=== PATIENT | male | born 1970 | race Caucasian/White ===

== ENCOUNTER 2020-11-20 07:02 | Emergency (ER) | payer OTHER ==
[2020-11-20 07:20] VITALS: RESP 18; TEMP 98.5
[2020-11-20] MEDS ORDERED: SODIUM CHLORIDE 0.9% 2,000 ML IV STA (07:32)
[2020-11-20] MEDS ORDERED: ONDANSETRON 4 MG/2 ML VIAL IVP STA (07:32)
--- NOTE | 2020-11-20 07:32 | ED ---
General Adult HPI - General Chief complaint: Nausea/Vomiting/Diarrhea Stated complaint: Nausea, Vomiting Time Seen by Provider: 11/20/20 07:16 Source: patient, RN notes reviewed Mode of arrival: ambulatory Limitations: no limitations - History of Present Illness Initial comments: patient is a 50-year-old male presents to the ED for nausea and vomiting. Patient states that symptoms started last Monday and has been unable to keep food or liquids down. Patient states that he has a history of diverticulitis 2 years prior. Patient denies any fever, cough or congestion or changes in bowel movements. Patient states pain is tolerable 4 out of 10 pain at this point with more generalized discomfort. patient denies any sick contacts to his knowledge. - Related Data Previous Rx's Medication Instructions Recorded Amoxicillin/Potassium Clav 1 tab PO Q12HR #20 tab 11/20/20 [Augmentin 875-125 Tablet] Ondansetron Odt [Zofran Odt] 4 mg PO Q8HR PRN #14 tab 11/20/20 Allergies Allergy/AdvReac Type Severity Reaction Status Date / Time ibuprofen [From Motrin] Allergy Swelling Verified 11/20/20 07:20 Review of Systems ROS Statement: Those systems with pertinent positive or pertinent negative responses have been documented in the HPI. ROS Other: All systems not noted in ROS Statement are negative. Past Medical History Past Medical History: No Reported History Past Surgical History: Orthopedic Surgery Additional Past Surgical History / Comment(s): Neck Past Psychological History: No Psychological Hx Reported Smoking Status: Former smoker Past Alcohol Use History: Occasional Past Drug Use History: Marijuana General Exam Limitations: no limitations General appearance: alert, in no apparent distress Respiratory exam: Present: normal lung sounds bilaterally. Absent: respiratory distress, wheezes, rales, rhonchi, stridor Cardiovascular Exam: Present: regular rate, normal rhythm, normal heart sounds. Absent: systolic murmur, diastolic murmur, rubs, gallop, clicks GI/Abdominal exam: Present: soft, tenderness (mild diffuse), normal bowel sounds. Absent: distended, guarding, rebound, rigid Neurological exam: Present: alert, oriented X3 Skin exam: Present: warm, dry, intact, normal color. Absent: rash Course Vital Signs 11/20/20 07:15 Temperature 98.5 F Pulse Rate 93 Respiratory 18 Rate Blood Pressure 137/96 O2 Sat by Pulse 98 Oximetry Medical Decision Making - Medical Decision Making 50-year-old male presented for nausea vomiting mild abdominal discomfort. Patient has colonic wall thickening with diverticulosis. Patient was treated for diverticulitis he does have a surgeon who did his prior colonoscopy 2 years ago advised to follow-up for close treatment. Patient understands and agrees with plan patient was started on oral antibiotics return parameters were discussed. - Lab Data Result diagrams: 11/20/20 07:53 11/20/20 07:53 Lab Results 11/20/20 11/20/20 11/20/20 Range/Units 07:53 07:53 07:53 WBC 14.0 H (3.8-10.6) k/uL RBC 5.78 (4.30-5.90) m/uL Hgb 18.2 H (13.0-17.5) gm/dL Hct 51.1 (39.0-53.0) % MCV 88.4 (80.0-100.0) fL MCH 31.5 (25.0-35.0) pg MCHC 35.7 (31.0-37.0) g/dL RDW 11.7 (11.5-15.5) % Plt Count 390 (150-450) k/uL MPV 7.1 Neutrophils % 79 % Lymphocytes % 11 % Monocytes % 7 % Eosinophils % 1 % Basophils % 0 % Neutrophils # 11.0 H (1.3-7.7) k/uL Lymphocytes # 1.6 (1.0-4.8) k/uL Monocytes # 1.0 (0-1.0) k/uL Eosinophils # 0.1 (0-0.7) k/uL Basophils # 0.0 (0-0.2) k/uL Sodium 134 L (137-145) mmol/L Potassium 4.1 (3.5-5.1) mmol/L Chloride 93 L (98-107) mmol/L Carbon Dioxide 23 (22-30) mmol/L Anion Gap 18 mmol/L BUN 40 H (9-20) mg/dL Creatinine 1.56 H (0.66-1.25) mg/dL Est GFR (CKD-EPI)AfAm 59 (>60 ml/min/1.73 sqM) Est GFR (CKD-EPI)NonAf 51 (>60 ml/min/1.73 sqM) Glucose 127 H (74-99) mg/dL Plasma Lactic Acid Cabrera 1.6 (0.7-2.0) mmol/L Calcium 12.7 H (8.4-10.2) mg/dL Total Bilirubin 1.6 H (0.2-1.3) mg/dL AST 24 (17-59) U/L ALT 18 (4-49) U/L Alkaline Phosphatase 70 (38-126) U/L Total Protein 8.8 H (6.3-8.2) g/dL Albumin 5.2 H (3.5-5.0) g/dL Amylase 55 (30-110) U/L Lipase 41 (23-300) U/L Urine Color Urine Appearance (Clear) Urine pH (5.0-8.0) Ur Specific [place] (1.001-1.035) Urine Protein (Negative) Urine Glucose (UA) (Negative) Urine Ketones (Negative) Urine Blood (Negative) Urine Nitrite (Negative) Urine Bilirubin (Negative) Urine Urobilinogen (<2.0) mg/dL Ur Leukocyte Esterase (Negative) Urine RBC (0-5) /hpf Urine WBC (0-5) /hpf Ur Squamous Epith Cells (0-4) /hpf Amorphous Sediment (None) /hpf Urine Bacteria (None) /hpf Hyaline Casts (0-2) /lpf Urine Mucus (None) /hpf 11/20/20 Range/Units 08:04 WBC (3.8-10.6) k/uL RBC (4.30-5.90) m/uL Hgb (13.0-17.5) gm/dL Hct (39.0-53.0) % MCV (80.0-100.0) fL MCH (25.0-35.0) pg MCHC (31.0-37.0) g/dL RDW (11.5-15.5) % Plt Count (150-450) k/uL MPV Neutrophils % % Lymphocytes % % Monocytes % % Eosinophils % % Basophils % % Neutrophils # (1.3-7.7) k/uL Lymphocytes # (1.0-4.8) k/uL Monocytes # (0-1.0) k/uL Eosinophils # (0-0.7) k/uL Basophils # (0-0.2) k/uL Sodium (137-145) mmol/L Potassium (3.5-5.1) mmol/L Chloride (98-107) mmol/L Carbon Dioxide (22-30) mmol/L Anion Gap mmol/L BUN (9-20) mg/dL Creatinine (0.66-1.25) mg/dL Est GFR (CKD-EPI)AfAm (>60 ml/min/1.73 sqM) Est GFR (CKD-EPI)NonAf (>60 ml/min/1.73 sqM) Glucose (74-99) mg/dL Plasma Lactic Acid [place] (0.7-2.0) mmol/L Calcium (8.4-10.2) mg/dL Total Bilirubin (0.2-1.3) mg/dL AST (17-59) U/L ALT (4-49) U/L Alkaline Phosphatase (38-126) U/L Total Protein (6.3-8.2) g/dL Albumin (3.5-5.0) g/dL Amylase (30-110) U/L Lipase (23-300) U/L Urine Color Yellow Urine Appearance Turbid (Clear) Urine pH 5.0 (5.0-8.0) Ur Specific [place] 1.028 (1.001-1.035) Urine Protein 1+ H (Negative) Urine Glucose (UA) Negative (Negative) Urine Ketones Negative (Negative) Urine Blood Negative (Negative) Urine Nitrite Negative (Negative) Urine Bilirubin Negative (Negative) Urine Urobilinogen <2.0 (<2.0) mg/dL Ur Leukocyte Esterase Negative (Negative) Urine RBC 1 (0-5) /hpf Urine WBC 3 (0-5) /hpf Ur Squamous Epith Cells <1 (0-4) /hpf Amorphous Sediment Moderate H (None) /hpf Urine Bacteria Rare H (None) /hpf Hyaline Casts 44 H (0-2) /lpf Urine Mucus Many H (None) /hpf Disposition Clinical Impression: Diverticulitis, Colitis, Dehydration Disposition: HOME SELF-CARE Condition: Stable Instructions (If sedation given, give patient instructions): Diverticulitis (ED) Additional Instructions: Please return to the Emergency Department if symptoms worsen or any other concerns. Prescriptions: Amoxicillin/Potassium Clav [Augmentin 875-125 Tablet] 1 tab PO Q12HR #20 tab Ondansetron Odt [Zofran Odt] 4 mg PO Q8HR PRN #14 tab PRN Reason: Nausea Is patient prescribed a controlled substance at d/c from ED?: No Referrals: None,Stated [Primary Care Provider] - 1-2 days Time of Disposition: 09:23
[2020-11-20 08:27] LABS: Albumin 5.2 g/dL (3.5-5.0); Calcium 12.7 mg/dL (8.4-10.2); Potassium 4.1 mmol/L (3.5-5.1); Total Bilirubin 1.6 mg/dL (0.2-1.3); Total Protein 8.8 g/dL (6.3-8.2)
[2020-11-20 08:35] LABS: Amorphous Sediment,Urine Moderate /hpf; Appearance,Urine Turbid (Clear); Bacteria,Urine Rare /hpf; Bilirubin,Urine Negative (Negative); Blood,Urine Negative (Negative); Color,Urine Yellow; Glucose,Urine (UA) Negative (Negative); Hyaline Casts,Urine 44 /lpf (0-2); Ketones,Urine Negative (Negative); Leukocyte Esterase,Urine Negative (Negative); Mucus,Urine Many /hpf; Nitrite,Urine Negative (Negative); Protein,Urine 1+ (Negative); RBC,Urine 1 /hpf (0-5); Specific Gravity,Urine 1.028 (1.001-1.035); Squamous Epithelial Cell,Urine <1 /hpf (0-4); Urobilinogen,Urine <2.0 mg/dL (<2.0); WBC,Urine 3 /hpf (0-5)
[2020-11-20 08:40] LABS: Basophils % (A) 0 %; Eosinophils # (A) 0.1 k/uL (0-0.7); Eosinophils % (A) 1 %; HCT 51.1 % (39.0-53.0); HGB 18.2 gm/dL (13.0-17.5); Lymphocytes # (A) 1.6 k/uL (1.0-4.8); Lymphocytes % (A) 11 %; MCH 31.5 pg (25.0-35.0); MCHC 35.7 g/dL (31.0-37.0); MCV 88.4 fL (80.0-100.0); Mean Platelet Volume 7.1; Monocytes % (A) 7 %; Neutrophils % (A) 79 %; Platelet Count 390 k/uL (150-450); RBC 5.78 m/uL (4.30-5.90); RDW 11.7 % (11.5-15.5)
--- NOTE | 2020-11-20 08:44 | CT ---
EXAMINATION TYPE: CT abdomen pelvis w con DATE OF EXAM: 11/20/2020 COMPARISON: None INDICATION: nausea and vomiting, lower abd pain, history of diverticulitis DLP: 977.4 mGycm, Automated exposure control for dose reduction was used. CONTRAST: 100 mL of Isovue 300. Study performed without Oral Contrast TECHNIQUE: Axial images were obtained from above the diaphragm to the pubic rami in the axial plane a t 5 mm thick sections. Reconstructed images are reviewed on the computer in the coronal plane. FINDINGS: Limited CT sections are obtained the lung bases. The lung bases are clear. CT ABDOMEN: Liver: Normal Spleen: Normal Pancreas: Normal Adrenal glands: The adrenal glands are normal. Gallbladder: Normal Kidneys: No masses are evident. No hydronephrosis is present. No cysts are present. Delayed images were obtained through the kidneys, which remain unremarkable. Aorta: Vascular calcification is within the aorta. Inferior vena cava: Normal. CT PELVIS: Diverticular changes are present through the sigmoid colon. The distal sigmoid colon may have some di ffuse thickening. Workup for distal colonic mass is recommended. No inflammatory changes are adjacent to diverticulitis suggest underlying diverticulitis. There are loops of bowel which are incompletely distended or lack oral contrast limiting their evaluation. Appendix: Normal as visualized. Urinary bladder: Normal. Genitourinary structures: Prostate contains calcification Osseous structures: No suspicious lytic or sclerotic lesions. IMPRESSIONS: 1. Diffuse focal thickening within the distal sigmoid colon region. Underlying mass is not excluded. Additional workup such as colonoscopy is recommended. 2. Diverticulosis without evidence of acute diverticulitis.
[2020-11-20 09:52] VITALS: BP 153/94; PULSE 88
== END 2020-11-20 09:54 | disposition home or self-care (01) ==
LOC: EC 07:02
DX: K57.92 Diverticulitis of intestine, part unspecified, without perforation or abscess without bleeding (principal); K52.9 Noninfective gastroenteritis and colitis, unspecified; E86.0 Dehydration; F12.90 Cannabis use, unspecified, uncomplicated; Z87.891 Personal history of nicotine dependence; Z72.89 Other problems related to lifestyle
CPT/HCPCS: 36415; 80053; 82150; 83605; 83690; 85025; 81001; 74177; 99284; 96374; 96361; J2405; Q9967

== ENCOUNTER 2021-02-09 08:43 | Inpatient (IN) | payer OTHER ==
[2021-02-09] MEDS ORDERED: SODIUM CHLORIDE 0.9% 1,000 ML IV STA (09:09)
[2021-02-09] MEDS ORDERED: ONDANSETRON 4 MG/2 ML VIAL IVP STA (09:09)
--- NOTE | 2021-02-09 09:34 | ED ---
General Adult HPI - General Chief complaint: Nausea/Vomiting/Diarrhea Stated complaint: vomiting Time Seen by Provider: 02/09/21 08:57 Source: patient, RN notes reviewed, old records reviewed Mode of arrival: wheelchair Limitations: no limitations - History of Present Illness Initial comments: 51-year-old male presenting for evaluation of 3 days of nausea vomiting. Patient denies significant abdominal pain but states he does have some discomfort which she believes is secondary to vomiting. No fever. No diarrhea. No sick contacts. Patient denies chest pain. Denies cough or URI symptoms. - Related Data Home Medications Medication Instructions Recorded Confirmed No Known Home Medications 02/09/21 02/09/21 Allergies Allergy/AdvReac Type Severity Reaction Status Date / Time ibuprofen [From Motrin] Allergy Eye Verified 02/09/21 09:21 Swelling NSAIDS (Non-Steroidal Allergy Eye Verified 02/09/21 09:21 Anti-Inflamma Swelling Review of Systems ROS Statement: Those systems with pertinent positive or pertinent negative responses have been documented in the HPI. ROS Other: All systems not noted in ROS Statement are negative. Past Medical History Past Medical History: No Reported History Additional Past Medical History / Comment(s): diverticulitis Past Surgical History: Orthopedic Surgery Additional Past Surgical History / Comment(s): Neck Past Psychological History: No Psychological Hx Reported Smoking Status: Former smoker Past Alcohol Use History: Occasional Past Drug Use History: Marijuana General Exam Limitations: no limitations General appearance: alert, in no apparent distress Head exam: Present: atraumatic, normocephalic Eye exam: Present: normal appearance, PERRL ENT exam: Present: normal exam Neck exam: Present: normal inspection. Absent: tenderness, meningismus Respiratory exam: Present: normal lung sounds bilaterally. Absent: respiratory distress, wheezes Cardiovascular Exam: Present: regular rate, normal rhythm GI/Abdominal exam: Present: soft. Absent: distended, tenderness, guarding, rebound Extremities exam: Present: normal inspection, normal capillary refill. Absent: pedal edema Neurological exam: Present: alert, oriented X3, CN II-XII intact. Absent: motor sensory deficit Psychiatric exam: Present: normal affect, normal mood Skin exam: Present: warm, dry, intact. Absent: cyanosis, diaphoretic Course Vital Signs 02/09/21 02/09/21 08:44 10:03 Temperature 97 F L Pulse Rate 97 74 Respiratory 18 20 Rate Blood Pressure 170/77 163/111 O2 Sat by Pulse 96 100 Oximetry - Reevaluation(s) Reevaluation #1: 02/09/21 11:14 CT abdomen pelvis pending EKG Findings - EKG Comments: EKG Findings:: EKG: Normal sinus rhythm, rate of 87, GA interval 144, QRS duration 86, QTC [address] segment elevation. Medical Decision Making - Medical Decision Making 51-year-old male presenting with 3 or 4 days of nausea vomiting. No diarrhea. Patient appears ill and dehydrated. Workup is initiated. He has an elevated white blood cell count at 20, significantly elevated hemoglobin at 20.6. He is in acute renal failure with a creatinine of 7.9, elevated BUN his CO2 is 8. No prior history of kidney issues. Garcia catheter is initiated, urinalysis is pending. Patient will be admitted to [facility] who are aware of the admission and I did discuss case with Dr. Breanna major for nephrology. Patient given 2 L normal saline is started at 1 50 mL per hour of normal saline at this time awaiting nephrology recommendations. - Lab Data Result diagrams: 02/09/21 09:04 02/09/21 09:04 Lab Results 02/09/21 02/09/21 02/09/21 Range/Units 09:04 09:04 09:04 WBC 20.5 H (3.8-10.6) k/uL RBC 6.44 H (4.30-5.90) m/uL Hgb 20.6 H* (13.0-17.5) gm/dL Hct 57.9 H* (39.0-53.0) % MCV 89.9 (80.0-100.0) fL MCH 32.0 (25.0-35.0) pg MCHC 35.6 (31.0-37.0) g/dL RDW 12.8 (11.5-15.5) % Plt Count 357 (150-450) k/uL MPV 8.1 Neutrophils % 88 % Lymphocytes % 5 % Monocytes % 5 % Eosinophils % 1 % Basophils % 0 % Neutrophils # 18.0 H (1.3-7.7) k/uL Lymphocytes # 1.1 (1.0-4.8) k/uL Monocytes # 1.0 (0-1.0) k/uL Eosinophils # 0.1 (0-0.7) k/uL Basophils # 0.0 (0-0.2) k/uL Manual Slide Review Performed Anisocytosis (manual) Present Sodium 128 L (137-145) mmol/L Potassium 5.4 H (3.5-5.1) mmol/L Chloride 84 L (98-107) mmol/L Carbon Dioxide 8 L* (22-30) mmol/L Anion Gap 36 mmol/L BUN 68 H (9-20) mg/dL Creatinine 7.99 H* (0.66-1.25) mg/dL Est GFR (CKD-EPI)AfAm 8 (>60 ml/min/1.73 sqM) Est GFR (CKD-EPI)NonAf 7 (>60 ml/min/1.73 sqM) Glucose 151 H (74-99) mg/dL Plasma Lactic Acid [place]rera 2.1 H* (0.7-2.0) mmol/L Calcium 10.8 H (8.4-10.2) mg/dL Magnesium 2.2 (1.6-2.3) mg/dL Total Bilirubin 2.2 H (0.2-1.3) mg/dL AST 47 (17-59) U/L ALT 25 (4-49) U/L Alkaline Phosphatase 96 (38-126) U/L Total Protein 10.9 H (6.3-8.2) g/dL Albumin 5.9 H (3.5-5.0) g/dL Amylase 72 (30-110) U/L Lipase 63 (23-300) U/L Critical Care Time Critical Care Time: Yes Total Critical Care Time: 35 Disposition Clinical Impression: Dehydration, Acute renal failure (ARF) Disposition: ADMITTED IP TO THIS [facility] Condition: Stable Is patient prescribed a controlled substance at d/c from ED?: No Referrals: None,Stated [Primary Care Provider] - 1-2 days Decision to Admit Reason: Admit from EC Decision Date: 02/09/21 Decision Time: 11:16
[2021-02-09 09:38] LABS: Basophils % (A) 0 %; Eosinophils # (A) 0.1 k/uL (0-0.7); Eosinophils % (A) 1 %; Lymphocytes # (A) 1.1 k/uL (1.0-4.8); Lymphocytes % (A) 5 %; MCHC 35.6 g/dL (31.0-37.0); MCV 89.9 fL (80.0-100.0); Mean Platelet Volume 8.1; Monocytes % (A) 5 %; Neutrophils % (A) 88 %; Platelet Count 357 k/uL (150-450); RBC 6.44 m/uL (4.30-5.90); RDW 12.8 % (11.5-15.5); WBC 20.5 k/uL (3.8-10.6)
[2021-02-09 09:41] LABS: HCT 57.9 % (39.0-53.0); HGB 20.6 gm/dL (13.0-17.5)
[2021-02-09 09:48] LABS: Calcium 10.8 mg/dL (8.4-10.2); Total Bilirubin 2.2 mg/dL (0.2-1.3)
[2021-02-09 09:59] LABS: Potassium 5.4 mmol/L (3.5-5.1)
[2021-02-09 10:00] LABS: Albumin 5.9 g/dL (3.5-5.0); Magnesium 2.2 mg/dL (1.6-2.3); Total Protein 10.9 g/dL (6.3-8.2)
--- NOTE | 2021-02-09 10:03 | XR ---
EXAMINATION TYPE: XR KUB DATE OF EXAM: 02/09/2021 COMPARISON: None INDICATION: Nausea vomiting x4 days TECHNIQUE: Single view abdomen upright view FINDINGS: There is a normal bowel gas pattern. No free air is under the diaphragm. No suspicious air-fluid leve ls or differential air-fluid levels are evident. No mass effect is evident. Psoas margins are normal. No organomegaly is present. No abnormal calcifications identified. Osseous structures appear normal. IMPRESSION: 1. Unremarkable Abdomen
[2021-02-09] MEDS ORDERED: SODIUM CHLORIDE 0.9% 1,000 ML IV ONE (10:08)
[2021-02-09] MEDS ORDERED: SODIUM CHLORIDE 0.9% 1,000 ML IV SCH ×2 (10:45→12:45)
[2021-02-09 10:47] LABS: Anisocytosis (M) Present
[2021-02-09] MEDS ORDERED: ACETAMINOPHEN TAB 325 MG TAB PO PRN (10:57)
[2021-02-09] MEDS ORDERED: NALOXONE 0.4 MG/ML 1 ML VIAL IV PRN ×2 (10:57→12:34)
--- NOTE | 2021-02-09 10:57 | CT ---
EXAMINATION TYPE: CT abdomen pelvis wo con DATE OF EXAM: 02/09/2021 COMPARISON: CT 11/20/2020 HISTORY: generalized abdominal pain, nausea, vomiting CT DLP: 567 mGycm Automated exposure control for dose reduction was used. TECHNIQUE: Helical acquisition of images from the lung bases through the pelvis. FINDINGS: Lack of contrast could compromise sensitivity of the exam. LUNG BASES: No significant abnormality is appreciated. AORTA: No significant abnormality is appreciated. LIVER/GB: No significant abnormality is appreciated. PANCREAS: No significant abnormality is seen. SPLEEN: No significant abnormality is seen. ADRENALS: No significant abnormality is seen. KIDNEYS: No significant abnormality is seen. REPRODUCTIVE ORGANS: Prostate shows associated calcification. URINARY BLADDER: Mildly thickened wall could be due to lack of distention, correlate to exclude cyst itis or possibly chronic bladder outlet obstruction. BOWEL: Diverticular changes are present in the sigmoid colon, there is colonic wall thickening which could be due to muscular hypertrophy, difficult to exclude a mucosal lesion. Small bowel folds show some areas of thickened appearance. High-density stool may be due to radiodense medication or inspissation. The appendix is normal. No ev ident bowel obstruction FREE AIR: No Free Air is visible. ASCITES: None visible. PELVIC ADENOPATHY: None visualized. RETROPERITONEAL ADENOPATHY: No Retroperitoneal Adenopathy visible. OSSEOUS STRUCTURES: There is a spinal curvature, degenerative disc changes are noted. IMPRESSION: DIVERTICULOSIS AND FINDINGS WITHIN THE COLON IS DESCRIBED, CONSIDER BOWEL SURVEILLANCE INDICATED , POSSIBLE ENTERITIS. NONCONTRAST EXAM, ADDITIONAL FINDINGS ABOVE.
--- NOTE | 2021-02-09 11:16 | P.NPCON ---
History of Present Illness - Reason for Consult acute renal failure - History of Present Illness Reason for consultation: Acute kidney injury History of present illness: Patient is a 51-year-old male seen in renal consultation for acute kidney injury. Patient presented to the hospital with nausea and vomiting which began 02/06/2021. Patient states he has not been eating or drinking much at all for the last 3 days. No diarrhea. Denies use of nonsteroidals. No chest pain or shortness of breath. No edema. Patient states his urine output was quite low but has improved since he has been getting IV hydration. No history of diabetes. Denies prior history of kidney disease. Patient's creatinine in November 2020 was 1.56. No other records available. This admission his creatinine is 7.99. He is noted to be acidotic with a bicarbonate level of 8. Sodium was also low. He is also noted to be hypercalcemic with a calcium level of 10.8. It is noted that his calcium in November 2020 was also high at 12.7. Denies IV drug abuse. Admits to occasional marijuana use. No family history of renal disease. Vital signs are stable. General: The patient appeared well nourished and normally developed. HEENT: Head exam is unremarkable. LUNGS: Breath sounds decreased. HEART: Rate and Rhythm are regular. ABDOMEN: Soft, no distention. EXTREMITITES: No edema. Past Medical History Past Medical History: No Reported History Additional Past Medical History / Comment(s): diverticulitis Past Surgical History: Orthopedic Surgery Additional Past Surgical History / Comment(s): Neck Past Psychological History: No Psychological Hx Reported Smoking Status: Former smoker Past Alcohol Use History: Occasional Past Drug Use History: Marijuana Medications and Allergies Home Medications Medication Instructions Recorded Confirmed Type No Known Home Medications 02/09/21 02/09/21 History Allergies Allergy/AdvReac Type Severity Reaction Status Date / Time ibuprofen [From Motrin] Allergy Eye Verified 02/09/21 09:21 Swelling NSAIDS (Non-Steroidal Allergy Eye Verified 02/09/21 09:21 Anti-Inflamma Swelling Physical Exam Vitals: Vital Signs Temp Pulse Resp BP Pulse Ox 02/09/21 10:03 74 20 163/111 100 02/09/21 08:44 97 F L 97 18 170/77 96 Intake and Output 02/08/21 02/09/21 02/09/21 22:59 06:59 14:59 Other: Weight 81.193 kg Results - Lab Results Most recent lab results Calcium 10.8 mg/dL (8.4-10.2) H 02/09/21 09:04 Magnesium 2.2 mg/dL (1.6-2.3) 02/09/21 09:04 02/09/21 09:04 02/09/21 09:04 Assessment and Plan Plan: Assessment: 1. Acute kidney injury secondary to ATN secondary to hypovolemia. Creatinine 7.9 and on admission. No hydronephrosis noted on CT. 2. Hypovolemic hyponatremia. 3. Metabolic acidosis secondary to acute kidney injury. 4. Hypercalcemia secondary to volume contraction. 5. Nausea and vomiting. CT of the abdomen and pelvis suggestive of diverticulosis. Plan: Patient is receiving normal saline boluses at this time. Start isotonic sodium bicarbonate drip to be run at 1 50 mL an hour for maintenance fluids. Garcia catheter will be inserted. Strict I's and O's. Check further workup for hypercalcemia. Avoid nephrotoxins. Continue to monitor renal function and urine output. Continue to assess daily for need for renal replacement therapy. Discussed with the patient. Thank you for the consultation. I will continue to follow the patient with you during his hospital stay.
[2021-02-09] MEDS: DEXTROSE 5% IN WATER 1,000 ML with SODIUM BICARB (1 MEQ/ML) 150 ML IV SCH ×2 (11:51→20:00)
[2021-02-09 12:34] LABS: Appearance,Urine Cloudy (Clear); Bacteria,Urine Many /hpf; Bilirubin,Urine 1+ (Negative); Blood,Urine Moderate (Negative); Color,Urine Yellow; Glucose,Urine (UA) Negative (Negative); Hyaline Casts,Urine 293 /lpf (0-2); Ketones,Urine Negative (Negative); Leukocyte Esterase,Urine Negative (Negative); Mucus,Urine Few /hpf; Nitrite,Urine Negative (Negative); Protein,Urine 2+ (Negative); RBC,Urine 8 /hpf (0-5); Specific Gravity,Urine 1.018 (1.001-1.035); Urobilinogen,Urine <2.0 mg/dL (<2.0); WBC,Urine 16 /hpf (0-5)
--- NOTE | 2021-02-09 12:45 | P.HPIM ---
History of Present Illness H&P Date: 02/09/21 Chief Complaint: Vomiting 51-year-old male here for intractable nausea and vomiting which began 02/06/2021. Patient states he has not been eating or drinking much at all for the last 3 days. No diarrhea or abdominal pain. No chest pain or shortness of breath. No fevers or chills. He has been feeling generally weak and dizzy at times but no other complaints. He states that last November he presented similarly but had abdominal pain at that time and was found to have di verticulitis. No history of diabetes. Denies prior history of kidney disease. In the ER creatinine was 7.99. Patient's creatinine in November 2020 was 1.56. Bicarbonate level of 8. Sodium was also low 128. K 5.4. WBC 20, Hgb 20 Hct 58. He is also noted to be hypercalcemic with a calcium level of 10.8. It is noted that his calcium in November 2020 was also high at 12.7. Denies IV drug abuse. Admits to occasional marijuana and ETOH use. Review of Systems Complete review of system performed, pertinent positives per HPI, otherwise negative Past Medical History Past Medical History: No Reported History Additional Past Medical History / Comment(s): diverticulitis Past Surgical History: Orthopedic Surgery Additional Past Surgical History / Comment(s): Neck Past Psychological History: No Psychological Hx Reported Smoking Status: Former smoker Past Alcohol Use History: Occasional Past Drug Use History: Marijuana Medications and Allergies Home Medications Medication Instructions Recorded Confirmed Type No Known Home Medications 02/09/21 02/09/21 History Allergies Allergy/AdvReac Type Severity Reaction Status Date / Time ibuprofen [From Motrin] Allergy Eye Verified 02/09/21 09:21 Swelling NSAIDS (Non-Steroidal Allergy Eye Verified 02/09/21 09:21 Anti-Inflamma Swelling Physical Exam Vitals: Vital Signs Temp Pulse Resp BP Pulse Ox 02/09/21 11:48 67 18 158/112 98 02/09/21 10:03 74 20 163/111 100 02/09/21 08:44 97 F L 97 18 170/77 96 Intake and Output 02/08/21 02/09/21 02/09/21 22:59 06:59 14:59 Other: Weight 81.193 kg Constitutional: No acute distress, conversant, pleasant Eyes:Anicteric sclerae, moist conjunctiva, no lid-lag, PERRLA, ENMT: Oropharynx clear, no erythema, exudates Neck: Supple, FROM, no masses, or JVD, No carotid bruits, No thyromegaly Lungs: Clear to auscultation, Clear to percussion, Normal respiratory effort, no accessory muscle use Cardiovascular: Heart regular in rate and rhythm, No murmurs, gallops, or rubs, No peripheral edema Abdominal: Soft, Nontender, no guarding, rebound or rigidity, Normoactive bowel sounds, No hepatomegaly, No splenomegaly, No palpable mass Skin: Normal temperature, tone, texture, turgor, no induration, No subcutaneous nodules, No rash, lesions, No ulcers Extremities: No digital cyanosis, No clubbing, Pedal pulses intact and symmetrical, Radial pulses intact and symmetrical, No calf tenderness Psychiatric: Alert and oriented to person, place and time, appropriate affect, intact judgement Neuro: Muscles Strength 5/5 in all 4 extremities, Sensation to light touch grossly present throughout, Cranial nerves II-XII grossly intact, no focal sensory deficits Results CBC & Chem 7: 02/09/21 09:04 02/09/21 09:04 Labs: Abnormal Lab Results - Last 24 Hours (Table) 02/09/21 02/09/21 02/09/21 Range/Units 09:04 09:04 09:04 WBC 20.5 H (3.8-10.6) k/uL RBC 6.44 H (4.30-5.90) m/uL Hgb 20.6 H* (13.0-17.5) gm/dL Hct 57.9 H* (39.0-53.0) % Neutrophils # 18.0 H (1.3-7.7) k/uL Sodium 128 L (137-145) mmol/L Potassium 5.4 H (3.5-5.1) mmol/L Chloride 84 L (98-107) mmol/L Carbon Dioxide 8 L* (22-30) mmol/L BUN 68 H (9-20) mg/dL Creatinine 7.99 H* (0.66-1.25) mg/dL Glucose 151 H (74-99) mg/dL Plasma Lactic Acid Cabrera 2.1 H* (0.7-2.0) mmol/L Calcium 10.8 H (8.4-10.2) mg/dL Total Bilirubin 2.2 H (0.2-1.3) mg/dL Total Protein 10.9 H (6.3-8.2) g/dL Albumin 5.9 H (3.5-5.0) g/dL Assessment and Plan Plan: Acute renal failure Could be secondary to dehydration due to nausea and vomiting versus hypercalcemia-induced Nephrology is consulted, hypercalcemia workup sent IV hydration Follow up creatinine in the morning Metabolic acidosis Likely secondary to above Patient will be started on bicarbonate drip Follow bicarb level in the morning Nausea and vomiting Could be due to renal failure versus gastroenteritis Antiemetics Alcohol and marijuana abuse Counseled to quit Patient will be admitted to inpatient, expected length of stay more than 2 midnights
[2021-02-09] MEDS: ONDANSETRON 4 MG/2 ML VIAL IVP PRN ×2 (13:45→17:10)
[2021-02-09] MEDS ORDERED: MAG HYDROX/AL HYDROX/SIMETH 30 ML CUP PO ONE (14:22)
[2021-02-09 17:26] LABS: Calcium 8.7 mg/dL (8.4-10.2); Potassium 3.7 mmol/L (3.5-5.1)
[2021-02-09 19:18] LABS: Glucose,Whole Blood 115 mg/dL (75-99)
[2021-02-09 22:10] LABS: Protein, Total 1.8 g/dL (6.2-8.2)
[2021-02-10] MEDS: ONDANSETRON 4 MG/2 ML VIAL IVP PRN (02:54)
[2021-02-10] MEDS: DEXTROSE 5% IN WATER 1,000 ML with SODIUM BICARB (1 MEQ/ML) 150 ML IV SCH (03:37)
[2021-02-10 05:56] LABS: Glucose,Whole Blood 135 mg/dL (75-99)
[2021-02-10 07:24] LABS: Basophils % (A) 0 %; Eosinophils # (A) 0.1 k/uL (0-0.7); Eosinophils % (A) 0 %; HCT 44.1 % (39.0-53.0); Lymphocytes # (A) 1.5 k/uL (1.0-4.8); Lymphocytes % (A) 12 %; MCH 30.8 pg (25.0-35.0); MCHC 34.5 g/dL (31.0-37.0); MCV 89.3 fL (80.0-100.0); Monocytes # (A) 1.1 k/uL (0-1.0); Monocytes % (A) 9 %; Neutrophils # (A) 9.6 k/uL (1.3-7.7); Neutrophils % (A) 77 %; Platelet Count 305 k/uL (150-450); RBC 4.94 m/uL (4.30-5.90); RDW 12.5 % (11.5-15.5); WBC 12.4 k/uL (3.8-10.6)
[2021-02-10 07:28] LABS: HGB 15.2 gm/dL (13.0-17.5)
[2021-02-10] MEDS ORDERED: ONDANSETRON 4 MG/2 ML VIAL IVP PRN (08:18)
--- NOTE | 2021-02-10 09:10 | P.PN ---
Subjective Patient is seen in follow-up for acute kidney injury. Creatinine was 7.99 on admission and down to 5.4 for as of yesterday evening. Calcium level also normal. Oral intake remains poor. Nonoliguric. No vomiting. Vital signs are stable. HEENT: Head exam is unremarkable. LUNGS: Breath sounds decreased. HEART: Rate and Rhythm are regular. ABDOMEN: Soft, no distention. EXTREMITITES: No edema. Objective - Vital Signs Vital signs: Vital Signs Temp 97.9 F 02/10/21 04:00 Pulse 69 02/10/21 04:00 Resp 18 02/10/21 04:00 BP 160/81 02/10/21 04:00 Pulse Ox 96 02/10/21 04:00 Intake & Output 02/09/21 02/10/21 02/10/21 18:59 06:59 18:59 Output Total 1200 Balance -1200 Weight 81.193 kg Output: Urine 1200 - Labs CBC & Chem 7: 02/10/21 06:57 02/09/21 16:41 Labs: Abnormal Lab Results - Last 24 Hours (Table) 02/09/21 02/09/21 02/09/21 Range/Units 09:04 09:04 09:04 WBC 20.5 H (3.8-10.6) k/uL RBC 6.44 H (4.30-5.90) m/uL Hgb 20.6 H* (13.0-17.5) gm/dL Hct 57.9 H* (39.0-53.0) % Neutrophils # 18.0 H (1.3-7.7) k/uL Monocytes # (0-1.0) k/uL Sodium 128 L (137-145) mmol/L Potassium 5.4 H (3.5-5.1) mmol/L Chloride 84 L (98-107) mmol/L Carbon Dioxide 8 L* (22-30) mmol/L BUN 68 H (9-20) mg/dL Creatinine 7.99 H* (0.66-1.25) mg/dL Glucose 151 H (74-99) mg/dL POC Glucose (mg/dL) (75-99) mg/dL Plasma Lactic Acid Cabrera 2.1 H* (0.7-2.0) mmol/L Calcium 10.8 H (8.4-10.2) mg/dL Total Bilirubin 2.2 H (0.2-1.3) mg/dL Total Protein 10.9 H (6.3-8.2) g/dL Total Protein (PEP) (6.2-8.2) g/dL Albumin 5.9 H (3.5-5.0) g/dL Urine Protein (Negative) Urine Blood (Negative) Urine Bilirubin (Negative) Urine RBC (0-5) /hpf Urine WBC (0-5) /hpf Urine Bacteria (None) /hpf Hyaline Casts (0-2) /lpf Urine Mucus (None) /hpf 02/09/21 02/09/21 02/09/21 Range/Units 11:33 11:48 16:41 WBC (3.8-10.6) k/uL RBC (4.30-5.90) m/uL Hgb (13.0-17.5) gm/dL Hct (39.0-53.0) % Neutrophils # (1.3-7.7) k/uL Monocytes # (0-1.0) k/uL Sodium 128 L (137-145) mmol/L Potassium (3.5-5.1) mmol/L Chloride 84 L (98-107) mmol/L Carbon Dioxide (22-30) mmol/L BUN 73 H (9-20) mg/dL Creatinine 5.44 H (0.66-1.25) mg/dL Glucose 119 H (74-99) mg/dL POC Glucose (mg/dL) (75-99) mg/dL Plasma Lactic Acid Cabrera (0.7-2.0) mmol/L Calcium (8.4-10.2) mg/dL Total Bilirubin (0.2-1.3) mg/dL Total Protein (6.3-8.2) g/dL Total Protein (PEP) 1.8 L (6.2-8.2) g/dL Albumin (3.5-5.0) g/dL Urine Protein 2+ H (Negative) Urine Blood Moderate H (Negative) Urine Bilirubin 1+ H (Negative) Urine RBC 8 H (0-5) /hpf Urine WBC 16 H (0-5) /hpf Urine Bacteria Many H (None) /hpf Hyaline Casts 293 H (0-2) /lpf Urine Mucus Few H (None) /hpf 02/09/21 02/10/21 02/10/21 Range/Units 19:16 05:53 06:57 WBC 12.4 H (3.8-10.6) k/uL RBC (4.30-5.90) m/uL Hgb (13.0-17.5) gm/dL Hct (39.0-53.0) % Neutrophils # 9.6 H (1.3-7.7) k/uL Monocytes # 1.1 H (0-1.0) k/uL Sodium (137-145) mmol/L Potassium (3.5-5.1) mmol/L Chloride (98-107) mmol/L Carbon Dioxide (22-30) mmol/L BUN (9-20) mg/dL Creatinine (0.66-1.25) mg/dL Glucose (74-99) mg/dL POC Glucose (mg/dL) 115 H 135 H (75-99) mg/dL Plasma Lactic Acid Cabrera (0.7-2.0) mmol/L Calcium (8.4-10.2) mg/dL Total Bilirubin (0.2-1.3) mg/dL Total Protein (6.3-8.2) g/dL Total Protein (PEP) (6.2-8.2) g/dL Albumin (3.5-5.0) g/dL Urine Protein (Negative) Urine Blood (Negative) Urine Bilirubin (Negative) Urine RBC (0-5) /hpf Urine WBC (0-5) /hpf Urine Bacteria (None) /hpf Hyaline Casts (0-2) /lpf Urine Mucus (None) /hpf Microbiology - Last 24 Hours (Table) 02/09/21 11:33 Urine Culture - Preliminary Urine,Voided Assessment and Plan Plan: Assessment: 1. Acute kidney injury secondary to ATN secondary to hypovolemia. Creatinine 7.99 and on admission - 5.44 as of yesterday evening. No hydronephrosis noted on CT. 2. Hypovolemic hyponatremia. 3. Metabolic acidosis secondary to acute kidney injury. Improved with bicarbonate drip. 4. Hypercalcemia secondary to volume contraction. Resolved. Vitamin D 48. 5. Nausea and vomiting. CT of the abdomen and pelvis suggestive of diverticulosis. Plan: Stop bicarb drip. Start normal saline at 75 mL an hour. Morning labs pending. If renal function continues to improve, DC Garcia catheter. Follow-up workup for hypercalcemia. Avoid nephrotoxins. Continue to monitor renal function and urine output.
--- NOTE | 2021-02-10 10:18 | P.PN ---
Subjective Progress Note Date: 02/10/21 Principal diagnosis: Nausea and vomiting Doing well. feeling better and starting to eat. No N/v. No fevers. No pain. Objective - Vital Signs Vital signs: Vital Signs Temp 97.9 F 02/10/21 04:00 Pulse 69 02/10/21 04:00 Resp 18 02/10/21 04:00 BP 160/81 02/10/21 04:00 Pulse Ox 96 02/10/21 04:00 Intake & Output 02/09/21 02/10/21 02/10/21 18:59 06:59 18:59 Output Total 1200 Balance -1200 Weight 81.193 kg Output: Urine 1200 - Exam Constitutional: No acute distress, conversant, pleasant Eyes:Anicteric sclerae, moist conjunctiva, no lid-lag, PERRLA, ENMT: Oropharynx clear, no erythema, exudates Neck: Supple, FROM, no masses, or JVD, No carotid bruits, No thyromegaly Lungs: Clear to auscultation, Clear to percussion, Normal respiratory effort, no accessory muscle use Cardiovascular: Heart regular in rate and rhythm, No murmurs, gallops, or rubs, No peripheral edema Abdominal: Soft, Nontender, no guarding, rebound or rigidity, Normoactive bowel sounds, No hepatomegaly, No splenomegaly, No palpable mass Skin: Normal temperature, tone, texture, turgor, no induration, No subcutaneous nodules, No rash, lesions, No ulcers Extremities: No digital cyanosis, No clubbing, Pedal pulses intact and symmetrical, Radial pulses intact and symmetrical, No calf tenderness Psychiatric: Alert and oriented to person, place and time, appropriate affect, intact judgement Neuro: Muscles Strength 5/5 in all 4 extremities, Sensation to light touch grossly present throughout, Cranial nerves II-XII grossly intact, no focal sen juan deficits - Labs CBC & Chem 7: 02/10/21 06:57 02/09/21 16:41 Labs: Abnormal Lab Results - Last 24 Hours (Table) 02/09/21 02/09/21 02/09/21 Range/Units 09:04 11:33 11:48 WBC (3.8-10.6) k/uL Neutrophils # 18.0 H (1.3-7.7) k/uL Monocytes # (0-1.0) k/uL Sodium (137-145) mmol/L Chloride (98-107) mmol/L BUN (9-20) mg/dL Creatinine (0.66-1.25) mg/dL Glucose (74-99) mg/dL POC Glucose (mg/dL) (75-99) mg/dL Total Protein (PEP) 1.8 L (6.2-8.2) g/dL Urine Protein 2+ H (Negative) Urine Blood Moderate H (Negative) Urine Bilirubin 1+ H (Negative) Urine RBC 8 H (0-5) /hpf Urine WBC 16 H (0-5) /hpf Urine Bacteria Many H (None) /hpf Hyaline Casts 293 H (0-2) /lpf Urine Mucus Few H (None) /hpf 02/09/21 02/09/21 02/10/21 Range/Units 16:41 19:16 05:53 WBC (3.8-10.6) k/uL Neutrophils # (1.3-7.7) k/uL Monocytes # (0-1.0) k/uL Sodium 128 L (137-145) mmol/L Chloride 84 L (98-107) mmol/L BUN 73 H (9-20) mg/dL Creatinine 5.44 H (0.66-1.25) mg/dL Glucose 119 H (74-99) mg/dL POC Glucose (mg/dL) 115 H 135 H (75-99) mg/dL Total Protein (PEP) (6.2-8.2) g/dL Urine Protein (Negative) Urine Blood (Negative) Urine Bilirubin (Negative) Urine RBC (0-5) /hpf Urine WBC (0-5) /hpf Urine Bacteria (None) /hpf Hyaline Casts (0-2) /lpf Urine Mucus (None) /hpf 02/10/21 Range/Units 06:57 WBC 12.4 H (3.8-10.6) k/uL Neutrophils # 9.6 H (1.3-7.7) k/uL Monocytes # 1.1 H (0-1.0) k/uL Sodium (137-145) mmol/L Chloride (98-107) mmol/L BUN (9-20) mg/dL Creatinine (0.66-1.25) mg/dL Glucose (74-99) mg/dL POC Glucose (mg/dL) (75-99) mg/dL Total Protein (PEP) (6.2-8.2) g/dL Urine Protein (Negative) Urine Blood (Negative) Urine Bilirubin (Negative) Urine RBC (0-5) /hpf Urine WBC (0-5) /hpf Urine Bacteria (None) /hpf Hyaline Casts (0-2) /lpf Urine Mucus (None) /hpf Microbiology - Last 24 Hours (Table) 02/09/21 11:33 Urine Culture - Preliminary Urine,Voided Assessment and Plan Plan: Acute renal failure Could be secondary to dehydration due to nausea and vomiting versus hypercalcemia-induced Nephrology is consulted, hypercalcemia workup sent IV hydration Follow up creatinine in the morning--currently pending Metabolic acidosis Likely secondary to above Received bicarbonate drip X24hrs Follow bicarb level Nausea and vomiting Could be due to renal failure versus gastroenteritis Antiemetics Alcohol and marijuana abuse Counseled to quit Anticipated discharge: 1-2 days Dispo: Likely home
[2021-02-10 10:20] LABS: Albumin 4.1 g/dL (3.5-5.0); Calcium 8.6 mg/dL (8.4-10.2); Magnesium 2.5 mg/dL (1.6-2.3); Potassium 3.2 mmol/L (3.5-5.1); Total Bilirubin 2.1 mg/dL (0.2-1.3)
[2021-02-10] MEDS ORDERED: POTASSIUM CHLORIDE ER 20 MEQ TAB.ER PO STA (11:15)
[2021-02-10 11:22] LABS: Angiotensin-1 Converting Enz. 8 U/L (8-52)
[2021-02-10 13:14] VITALS: BMI 26.4
[2021-02-10 15:27] LABS: Albumin 1.04 g/dL (3.80-4.90); Gamma Globulin 0.21 g/dL (0.70-1.50)
[2021-02-10] MEDS: SODIUM CHLORIDE 0.9% 1,000 ML IV SCH (15:55)
[2021-02-10 16:11] LABS: Vitamin D, 1, 25-Dihydroxy 21 pg/mL (20 - 79)
[2021-02-10] MEDS: CALCIUM CARBONATE 500 MG CHEWABLE PO PRN (18:28)
[2021-02-11] MEDS: CALCIUM CARBONATE 500 MG CHEWABLE PO PRN (00:10)
[2021-02-11] MEDS: SODIUM CHLORIDE 0.9% 1,000 ML IV SCH (00:11)
[2021-02-11 02:15] VITALS: RESP 16
[2021-02-11 08:37] LABS: Calcium 8.4 mg/dL (8.4-10.2); Magnesium 2.5 mg/dL (1.6-2.3); Potassium 3.8 mmol/L (3.5-5.1)
--- NOTE | 2021-02-11 09:39 | P.PN ---
Subjective Patient is seen in follow-up for acute kidney injury. Creatinine was 7.99 on admission and down to 1.4 this morning. Calcium level also normal. Oral intake improves. Good urine output. Garcia catheter removed. No vomiting. Vital signs are stable. HEENT: Head exam is unremarkable. LUNGS: Breath sounds decreased. HEART: Rate and Rhythm are regular. ABDOMEN: Soft, no distention. EXTREMITITES: No edema. Objective - Vital Signs Vital signs: Vital Signs Temp 98.1 F 02/11/21 04:00 Pulse 61 02/11/21 04:00 Resp 16 02/11/21 04:00 BP 119/66 02/11/21 04:00 Pulse Ox 98 02/11/21 04:00 Intake & Output 02/10/21 02/11/21 02/11/21 18:59 06:59 18:59 Intake Total 2198 Output Total 2100 1200 Balance 98 -1200 Weight 81.193 kg Intake: Intake, IV Titration 1800 Amount Dextrose 5% in Water 1, 1200 000 ml @ 150 mls/hr IV . [id number] OFELIA with Sodium Bicarb (1 Meq/ml) 150 ml Rx#:[id number] Sodium Chloride 0.9% 1, 600 000 ml @ 75 mls/hr IV . [id number] OFELIA Rx#:[id number] Oral 398 Output: Urine 2100 1200 - Labs CBC & Chem 7: 02/10/21 06:57 02/11/21 07:49 Labs: Abnormal Lab Results - Last 24 Hours (Table) 02/09/21 02/10/21 02/11/21 Range/Units 11:48 06:57 07:49 Sodium 129 L 134 L (137-145) mmol/L Potassium 3.2 L (3.5-5.1) mmol/L Chloride 84 L 94 L (98-107) mmol/L Carbon Dioxide 34 H 33 H (22-30) mmol/L BUN 58 H 33 H (9-20) mg/dL Creatinine 2.76 H 1.40 H (0.66-1.25) mg/dL Glucose 121 H 104 H (74-99) mg/dL Magnesium 2.5 H 2.5 H (1.6-2.3) mg/dL Total Bilirubin 2.1 H (0.2-1.3) mg/dL Albumin (PEP) 1.04 L (3.80-4.90) g/dL [id number] 0.27 L (0.60-1.00) g/dL Beta Globulins 0.18 L (0.60-1.30) g/dL Gamma Globulins 0.21 L (0.70-1.50) g/dL Microbiology - Last 24 Hours (Table) 02/09/21 11:33 Urine Culture - Final Urine,Voided Assessment and Plan Plan: Assessment: 1. Acute kidney injury secondary to ATN secondary to hypovolemia. Creatinine 7.99 and on admission - 1.4 today. No hydronephrosis noted on CT. 2. Hypovolemic hyponatremia. Improved. 3. Metabolic acidosis secondary to acute kidney injury. Improved with bicarbonate drip. 4. Hypercalcemia secondary to volume contraction. Resolved. Vitamin D 48. UGO normal. 1,25D3 21. 5. Nausea and vomiting. CT of the abdomen and pelvis suggestive of diverticulosis. Plan: Maintain normal saline. Follow-up immunofixation studies. Avoid nephrotoxins. Continue to monitor renal function and urine output. Okay for discharge from nephrology standpoint. Follow up outpatient in 1 week.
--- NOTE | 2021-02-11 10:32 | P.DS ---
Providers Date of admission: 02/09/21 10:57 Expected date of discharge: 02/11/21 Attending physician: Felicia Frazier MD Consults: 02/09/21 10:57 Consult Physician Urgent Consulting Provider: Maikol Carlos Consult Reason/Comments: ARF Do you want consulting provider notified?: Already Contacted Primary care physician: Stated None Hospital Course: 51-year-old male here for intractable nausea and vomiting which began 02/06/2021. Patient states he has not been eating or drinking much at all for the last 3 days. No diarrhea or abdominal pain. No chest pain or shortness of breath. No fevers or chills. He has been feeling generally weak and dizzy at times but no other complaints. He states that last November he presented similarly but had abdominal pain at that time and was found to have diverticulitis. No history of diabetes. Denies prior history of kidney disease. In the ER creatinine was 7.99. Patient's creatinine in November 2020 was 1.56. Bicarbonate level of 8. Sodium was also low 128. K 5.4. WBC 20, Hgb 20 Hct 58. He is also noted to be hypercalcemic with a calcium level of 10.8. It is noted that his calcium in November 2020 was also high at 12.7. Denies IV drug abuse. Admits to occasional marijuana and ETOH use. Computed tomography scan of the abdomen done in the emergency department showed possible enteritis and diverticulosis. Patient was admitted, he was started on IV fluids for severe dehydration due to the vomiting. Garcia catheter was inserted upon admission. Urinalysis showed 2+ protein, red blood cells 8, WBC 16, moderate bacteria, hyaline casts and mucus. No treatment was felt to be indicated for UTI because of lack of urinary symptoms. He was seen by nephrology who ordered workup for hypercalcemia. Vitamin D and kai levels came back normal. Serum protein electrophoresis and immunofixation were ordered, currently pending. With IV hydration creatinine improved to 1.4 upon discharge. Garcia catheter was discontinued and he was urinating normally. Patient was cleared today for discharge by nephrology. He was instructed to follow-up with gastroenterology for EGD and colonoscopy as well as nephrology. He was also told to establish care with a primary care physician. Time for discharge 36 min Patient Condition at Discharge: Stable Plan - Discharge Summary Discharge Rx Participant: No New Discharge Prescriptions: No Action No Known Home Medications Discharge Medication List No Known Home Medications 02/09/21 [History] Follow up Appointment(s)/Referral(s): Mary Larkin MD [STAFF PHYSICIAN] - 1 Week None,Stated [Primary Care Provider] - 1-2 days Maikol Carlos DO [STAFF PHYSICIAN] - 1 Week
[2021-02-11 10:54] VITALS: BP 114/71; PULSE 67; TEMP 97.4
== END 2021-02-11 10:40 | disposition home or self-care (01) | DRG 640 ==
LOC: EC 08:43 → 3SCARD 10:57
PROVIDERS: ADMIT Internal Medicine; ATTEND Internal Medicine
DX: E86.0 Dehydration (principal); N17.0 Acute kidney failure with tubular necrosis; R11.10 Vomiting, unspecified; E87.1 Hypo-osmolality and hyponatremia; E87.2 Acidosis; E83.52 Hypercalcemia; E86.1 Hypovolemia; F10.10 Alcohol abuse, uncomplicated; F12.10 Cannabis abuse, uncomplicated; Z87.891 Personal history of nicotine dependence; K57.30 Diverticulosis of large intestine without perforation or abscess without bleeding; Z20.822 Contact with and (suspected) exposure to COVID-19
CPT/HCPCS: 36415; 74018; 74176; 80048; 80053; 81001; 82150; 82164; 82306; 82652; 83605; 83690; 83735; 84165; 85025; 86334; 86335; 87086; 87635; 93005; 96361; 96374; 99291

== ENCOUNTER 2023-02-05 21:50 | Inpatient (IN) | payer OTHER ==
[2023-02-05] MEDS ORDERED: diphenhydrAMINE 50 MG/ML 1 ML VIAL IVP STA (22:11)
[2023-02-05] MEDS ORDERED: METOCLOPRAMIDE 5 MG/ML 2 ML VIAL IVP STA (22:11)
[2023-02-05] MEDS ORDERED: SODIUM CHLORIDE 0.9% 1,000 ML IV STA (22:11)
--- NOTE | 2023-02-05 22:49 | ED ---
Nausea/Vomiting/Diarrhea HPI - General Chief complaint: Nausea/Vomiting/Diarrhea Stated complaint: Vomiting, Dehydration Time Seen by Provider: 02/05/23 21:55 Source: patient Mode of arrival: ambulatory Limitations: no limitations - History of Present Illness Initial comments: 53-year-old male presenting with chief complaint of nausea and vomiting. Symptoms started this morning. He has been unable to keep down any food or fluids. She denies any notable abdominal pain. He admits to dizziness. No fever, chills, diarrhea, hematochezia, melena, dysuria, hematuria, cough, congestion, sore throat, chest pain, difficulty breathing. His gave him a Zofran at home which he threw up shortly thereafter. - Related Data Home Medications Medication Instructions Recorded Confirmed No Known Home Medications 02/09/21 02/09/21 Allergies Allergy/AdvReac Type Severity Reaction Status Date / Time ibuprofen [From Motrin] Allergy Eye Verified 02/09/21 09:21 Swelling NSAIDS (Non-Steroidal Allergy Eye Verified 02/09/21 09:21 Anti-Inflamma Swelling Review of Systems ROS Statement: Those systems with pertinent positive or pertinent negative responses have been documented in the HPI. ROS Other: All systems not noted in ROS Statement are negative. Past Medical History Past Medical History: No Reported History Additional Past Medical History / Comment(s): diverticulitis, benign colon polyp History of Any Multi-Drug Resistant Organisms: None Reported Past Surgical History: Orthopedic Surgery, Tonsillectomy Additional Past Surgical History / Comment(s): Colonoscopy, anterior cervical fusion, ORIF R ankle, R hand tendon repair, colonoscopy Past Anesthesia/Blood Transfusion Reactions: No Reported Reaction Past Psychological History: No Psychological Hx Reported Smoking Status: Former smoker, Vaper Past Alcohol Use History: Rare Past Drug Use History: None Reported - Past Family History Father Family Medical History: No Reported History Additional Family Medical History / Comment(s): Father is healthy Mother Family Medical History: No Reported History Additional Family Medical History / Comment(s): Mother is healthy General Exam Limitations: no limitations General appearance: alert, in distress (Patient appears substantially nauseated and uncomfortable) Head exam: Present: atraumatic, normocephalic Eye exam: Present: normal appearance Neck exam: Present: normal inspection Respiratory exam: Present: normal lung sounds bilaterally. Absent: respiratory distress, wheezes, rales, rhonchi, stridor Cardiovascular Exam: Present: regular rate, normal rhythm, normal heart sounds. Absent: systolic murmur, diastolic murmur, rubs, gallop, clicks GI/Abdominal exam: Present: soft. Absent: distended, tenderness, guarding, rebound, rigid Neurological exam: Present: alert, oriented X3 Psychiatric exam: Present: normal affect, normal mood Course Vital Signs 02/05/23 02/06/23 21:51 00:41 Temperature 98.0 F 96.9 F L Pulse Rate 88 53 L Respiratory 22 18 Rate Blood Pressure 176/94 176/106 O2 Sat by Pulse 97 100 Oximetry Medical Decision Making - Medical Decision Making Was pt. sent in by a medical professional or institution (, PA, MIDLEVEL PROVIDER, urgent care, hospital, or skilled nursing...) When possible be specific @ -No Did you speak to anyone other than the patient for history (EMS, parent, family, police, friend...)? What history was obtained from this source @ -No Did you review nursing and triage notes (agree or disagree)? Why? @ -I reviewed and agree with nursing and triage notes Were old charts reviewed (outside hosp., previous admission, EMS record, old EKG, old radiological studies, urgent care reports/EKG's, skilled nursing records)? Report findings @ -No old charts were reviewed Differential Diagnosis (chest pain, altered mental status, abdominal pain women, abdominal pain men, vaginal bleeding, weakness, fever, dyspnea, syncope, headache, dizziness, GI bleed, back pain, seizure, CVA, palpatations, mental health, musculoskeletal)? @ -Differential includes gastroenteritis, pancreatitis, cholecystitis, appendicitis, hyponatremia, drug induced vomiting, this is not an all inclusive list EKG interpreted by me (3pts min.). @ -EKG shows sinus rhythm ventricular rate 60. MA interval 135. QRS 93. QT 425. QTc 425. X-rays interpreted by me (1pt min.). @ -None done CT interpreted by me (1pt min.). @ -None done U/S interpreted by me (1pt. min.). @ -None done What testing was considered but not performed or refused? (CT, X-rays, U/S, labs)? Why? @ -None What meds were considered but not given or refused? Why? @ -None Did you discuss the management of the patient with other professionals (professionals i.e. DrJacqueline, PA, MIDLEVEL PROVIDER, lab, RT, psych nurse, foster care social worker, chain repairer, teacher, budget officer, continuous pillowcase cutter)? Give summary @ -My attending spoke with the [facility] provider on-call who accepted admission Was smoking cessation discussed for >3mins.? @ -No Was critical care preformed (if so, how long)? @ -No Were there social determinants of health that impacted care today? How? (Homelessness, low income, unemployed, alcoholism, drug addiction, transportation, low edu. Level, literacy, decrease access to med. care, [place] [facility], rehab)? @ -No Was there de-escalation of care discussed even if they declined (Discuss DNR or withdrawal of care, Hospice)? DNR status @ -No What co-morbidities impacted this encounter? (DM, HTN, Smoking, COPD, CAD, Cancer, CVA, ARF, Chemo, Hep., AIDS, mental health diagnosis, sleep apnea, morbid obesity)? @ -None Was patient admitted / discharged? Hospital course, mention meds given and route, prescriptions, significant lab abnormalities, going to OR and other pertinent info. @ -53-year-old male presenting with chief complaint of nausea and vomiting that started today he is unable to hold down any fluids or food. No abdominal pain. No fevers or URI like symptoms. History and physical exam were conducted. Abdomen is soft, nontender, nondistended. Patient appears dehydrated and sickly. WBC 16.3, likely reactive. Patient is hemoconcentrated with hemoglobin 18.1 and RBC 6.04. Creatinine 1.57 and BUN 26. Calcium 13.3. Bilirubin 1.4. Anion gap 26 carbon dioxide 19 chloride 93. He is negative for influenza, RSV, and Covid. Amylase and lipase are WNL. Patient received 2 L fluid bolus and started on maintenance rate of 130 mils per hour. EKG shows sinus rhythm, T waves appear somewhat prolonged. Patient will be admitted due to dehydration, acute kidney injury, and hypercalcemia. Nephrology is consulted. Patient is agreeable to this plan. I discussed this case with my attending Dr. Cobb Undiagnosed new problem with uncertain prognosis? @ -No Drug Therapy requiring intensive monitoring for toxicity (Heparin, Nitro, Insulin, Cardizem)? @ -No Were any procedures done? @ -No Diagnosis/symptom? @ -Dehydration, acute kidney injury, hypercalcemia Acute, or Chronic, or Acute on Chronic? @ -Acute Uncomplicated (without systemic symptoms) or Complicated (systemic symptoms)? @ -Complicated Side effects of treatment? @ -No Exacerbation, Progression, or Severe Exacerbation? @ -No Poses a threat to life or bodily function? How? (Chest pain, [place], [place], pneumonia, PE, COPD, DKA, ARF, appy, cholecystitis, CVA, Diverticulitis, Homicidal, Suicidal, threat to staff... and all critical care pts) @ -yes - Lab Data Result diagrams: 02/05/23 22:29 02/05/23 22:29 Lab Results 02/05/23 02/05/23 02/05/23 Range/Units 22:29 22:29 23:38 WBC 16.3 H (3.8-10.6) k/uL RBC 6.04 H (4.30-5.90) m/uL Hgb 18.1 H (13.0-17.5) gm/dL Hct 52.8 (39.0-53.0) % MCV 87.5 (80.0-100.0) fL MCH 30.0 (25.0-35.0) pg MCHC 34.2 (31.0-37.0) g/dL RDW 12.3 (11.5-15.5) % Plt Count 445 (150-450) k/uL MPV 8.3 Neutrophils % 80 % Lymphocytes % 12 % Monocytes % 5 % Eosinophils % 1 % Basophils % 0 % Neutrophils # 13.1 H (1.3-7.7) k/uL Lymphocytes # 2.0 (1.0-4.8) k/uL Monocytes # 0.8 (0-1.0) k/uL Eosinophils # 0.2 (0-0.7) k/uL Basophils # 0.1 (0-0.2) k/uL Sodium 138 (137-145) mmol/L Potassium 4.1 (3.5-5.1) mmol/L Chloride 93 L (98-107) mmol/L Carbon Dioxide 19 L (22-30) mmol/L Anion Gap 26 mmol/L BUN 26 H (9-20) mg/dL Creatinine 1.57 H (0.66-1.25) mg/dL Est GFR (CKD-EPI)AfAm 57 (>60 ml/min/1.73 sqM) Est GFR (CKD-EPI)NonAf 49 (>60 ml/min/1.73 sqM) Glucose 142 H (74-99) mg/dL Calcium 13.3 H* (8.4-10.2) mg/dL Magnesium (1.6-2.3) mg/dL Total Bilirubin 1.4 H (0.2-1.3) mg/dL AST 32 (17-59) U/L ALT 29 (4-49) U/L Alkaline Phosphatase 93 (38-126) U/L Total Protein 9.8 H (6.3-8.2) g/dL Albumin 5.9 H (3.5-5.0) g/dL Amylase 56 (30-110) U/L Lipase 68 (23-300) U/L Influenza Type A (PCR) Not Detected (Not Detectd) Influenza Type B (PCR) Not Detected (Not Detectd) RSV (PCR) Not Detected (Not Detectd) SARS-CoV-2 (PCR) Not Detected (Not Detectd) 02/05/23 Range/Units 23:53 WBC (3.8-10.6) k/uL RBC (4.30-5.90) m/uL Hgb (13.0-17.5) gm/dL Hct (39.0-53.0) % MCV (80.0-100.0) fL MCH (25.0-35.0) pg MCHC (31.0-37.0) g/dL RDW (11.5-15.5) % Plt Count (150-450) k/uL MPV Neutrophils % % Lymphocytes % % Monocytes % % Eosinophils % % Basophils % % Neutrophils # (1.3-7.7) k/uL Lymphocytes # (1.0-4.8) k/uL Monocytes # (0-1.0) k/uL Eosinophils # (0-0.7) k/uL Basophils # (0-0.2) k/uL Sodium (137-145) mmol/L Potassium (3.5-5.1) mmol/L Chloride (98-107) mmol/L Carbon Dioxide (22-30) mmol/L Anion Gap mmol/L BUN (9-20) mg/dL Creatinine (0.66-1.25) mg/dL Est GFR (CKD-EPI)AfAm (>60 ml/min/1.73 sqM) Est GFR (CKD-EPI)NonAf (>60 ml/min/1.73 sqM) Glucose (74-99) mg/dL Calcium (8.4-10.2) mg/dL Magnesium 1.8 (1.6-2.3) mg/dL Total Bilirubin (0.2-1.3) mg/dL AST (17-59) U/L ALT (4-49) U/L Alkaline Phosphatase (38-126) U/L Total Protein (6.3-8.2) g/dL Albumin (3.5-5.0) g/dL Amylase (30-110) U/L Lipase (23-300) U/L Influenza Type A (PCR) (Not Detectd) Influenza Type B (PCR) (Not Detectd) RSV (PCR) (Not Detectd) SARS-CoV-2 (PCR) (Not Detectd) Disposition Clinical Impression: Dehydration, Hypercalcemia, Acute kidney injury Disposition: ADMITTED IP TO THIS HOSP Condition: Poor Time of Disposition: 00:11
[2023-02-05 22:58] LABS: Basophils # (A) 0.1 k/uL (0-0.2); Basophils % (A) 0 %; Eosinophils # (A) 0.2 k/uL (0-0.7); Eosinophils % (A) 1 %; HCT 52.8 % (39.0-53.0); HGB 18.1 gm/dL (13.0-17.5); Lymphocytes % (A) 12 %; MCHC 34.2 g/dL (31.0-37.0); MCV 87.5 fL (80.0-100.0); Mean Platelet Volume 8.3; Monocytes # (A) 0.8 k/uL (0-1.0); Monocytes % (A) 5 %; Neutrophils # (A) 13.1 k/uL (1.3-7.7); Neutrophils % (A) 80 %; Platelet Count 445 k/uL (150-450); RBC 6.04 m/uL (4.30-5.90); RDW 12.3 % (11.5-15.5); WBC 16.3 k/uL (3.8-10.6)
[2023-02-05 23:13] LABS: ALT 29 U/L (4-49); AST 32 U/L (17-59); African American GFR (CKD) 57 (>60 ml/min/1.73 sqM); Albumin 5.9 g/dL (3.5-5.0); Alkaline Phosphatase 93 U/L (38-126); Amylase 56 U/L (30-110); Anion Gap 26 mmol/L; Blood Urea Nitrogen 26 mg/dL (9-20); Carbon Dioxide 19 mmol/L (22-30); Chloride 93 mmol/L (98-107); Glucose 142 mg/dL (74-99); Lipase 68 U/L (23-300); Non-African American GFR(CKD) 49 (>60 ml/min/1.73 sqM); Potassium 4.1 mmol/L (3.5-5.1); Sodium 138 mmol/L (137-145); Total Bilirubin 1.4 mg/dL (0.2-1.3); Total Protein 9.8 g/dL (6.3-8.2)
[2023-02-05 23:35] LABS: Calcium 13.3 mg/dL (8.4-10.2)
[2023-02-05] MEDS ORDERED: SODIUM CHLORIDE 0.9% 1,000 ML IV ONE (23:40)
[2023-02-06] MEDS ORDERED: NALOXONE 0.4 MG/ML 1 ML VIAL IV PRN (00:07)
[2023-02-06] MEDS ORDERED: METOCLOPRAMIDE 5 MG/ML 2 ML VIAL IVP PRN (00:09)
[2023-02-06] MEDS: SODIUM CHLORIDE 0.9% 1,000 ML IV SCH ×3 (00:59→23:05)
[2023-02-06 01:30] LABS: African American GFR (CKD) 71 (>60 ml/min/1.73 sqM); Anion Gap 20 mmol/L; Blood Urea Nitrogen 26 mg/dL (9-20); Calcium 11.7 mg/dL (8.4-10.2); Carbon Dioxide 18 mmol/L (22-30); Chloride 98 mmol/L (98-107); Glucose 153 mg/dL (74-99); Non-African American GFR(CKD) 61 (>60 ml/min/1.73 sqM); Sodium 136 mmol/L (137-145)
[2023-02-06] MEDS: ONDANSETRON 4 MG/2 ML VIAL IVP PRN ×3 (02:33→20:07)
--- NOTE | 2023-02-06 07:28 | XR ---
EXAMINATION TYPE: XR chest 2V DATE OF EXAM: 02/06/2023 COMPARISON: None INDICATION: Hypercalcemia TECHNIQUE: Frontal and lateral views of the chest are obtained. FINDINGS: The heart size is normal. The pulmonary vasculature is normal. The lungs are clear. Anterior cervical fusion is evident. IMPRESSION: 1. No acute pulmonary process.
[2023-02-06 07:47] LABS: African American GFR (CKD) >90 (>60 ml/min/1.73 sqM); Albumin 4.8 g/dL (3.5-5.0); Anion Gap 19 mmol/L; Blood Urea Nitrogen 26 mg/dL (9-20); Calcium 10.2 mg/dL (8.4-10.2); Carbon Dioxide 22 mmol/L (22-30); Chloride 99 mmol/L (98-107); Glucose 156 mg/dL (74-99); Non-African American GFR(CKD) 81 (>60 ml/min/1.73 sqM); Potassium 4.6 mmol/L (3.5-5.1); Sodium 140 mmol/L (137-145)
[2023-02-06 08:08] LABS: Appearance,Urine Clear (Clear); Bilirubin,Urine Negative (Negative); Blood,Urine Negative (Negative); Color,Urine Yellow; Glucose,Urine (UA) Negative (Negative); Hyaline Casts,Urine 6 /lpf (0-2); Ketones,Urine 3+ (Negative); Leukocyte Esterase,Urine Negative (Negative); Mucus,Urine Occasional /hpf; Nitrite,Urine Negative (Negative); Protein,Urine 1+ (Negative); RBC,Urine 1 /hpf (0-5); Specific Gravity,Urine 1.031 (1.001-1.035); Squamous Epithelial Cell,Urine <1 /hpf (0-4); Urobilinogen,Urine <2.0 mg/dL (<2.0); WBC,Urine <1 /hpf (0-5)
--- NOTE | 2023-02-06 10:05 | P.HPIM ---
History of Present Illness This is a pleasant 53 years old male with no significant past medical history Presents with reluctant nausea vomiting since yesterday morning that he could not keep anything down even when he tried to drink water. There is no blood area No abdominal pain, he feels chills and he feels called. He had bowel movement yesterday which was normal. He denies any other urinary symptoms, no chest pain or dyspnea or coughing. Little dizzy but no headache weakness or numbness. He is on a special diet to lose weight, and this is the third time H time he drinks alcohol his to have vomiting Review of Systems Review of systems CONSTITUTIONAL: No fever, no malaise, no fatigue. HEENT: No recent visual problems or hearing problems. Denied any sore throat. CARDIOVASCULAR: No orthopnea, PND, no palpitations, no syncope. PULMONARY: No shortness of breath, no cough, no hemoptysis. GASTROINTESTINAL: No diarrhea,, no abdominal pain. Normoactive bowel sounds. NEUROLOGICAL: No headaches, no weakness, no numbness. HEMATOLOGICAL: Denies any bleeding or petechiae. GENITOURINARY: Denies any burning micturition, frequency, or urgency. MUSCULOSKELETAL/RHEUMATOLOGICAL: Denies any joint pain, swelling, or any muscle pain. ENDOCRINE: Denies any polyuria or polydipsia. Past Medical History Past Medical History: No Reported History Additional Past Medical History / Comment(s): diverticulitis, benign colon polyp History of Any Multi-Drug Resistant Organisms: None Reported Past Surgical History: Orthopedic Surgery, Tonsillectomy Additional Past Surgical History / Comment(s): Colonoscopy, anterior cervical fusion, ORIF R ankle, R hand tendon repair, colonoscopy Past Anesthesia/Blood Transfusion Reactions: No Reported Reaction Past Psychological History: No Psychological Hx Reported Additional Psychological History / Comment(s): Pt resides with his spouse and their 2 sons, one of which is an adult. Pt is independent. Smoking Status: Former smoker, Vaper Past Alcohol Use History: Rare Additional Past Alcohol Use History / Comment(s): Pt started smoking as a teen and quit in 2019. He then started vaping. Past Drug Use History: None Reported Additional Drug Use History / Comment(s): Occasional marijuana use. - Past Family History Father Family Medical History: No Reported History Additional Family Medical History / Comment(s): Father is healthy Mother Family Medical History: No Reported History Additional Family Medical History / Comment(s): Mother is healthy Medications and Allergies Home Medications Medication Instructions Recorded Confirmed Type No Known Home Medications 02/09/21 02/09/21 History Allergies Allergy/AdvReac Type Severity Reaction Status Date / Time ibuprofen [From Motrin] Allergy Eye Verified 02/09/21 09:21 Swelling NSAIDS (Non-Steroidal Allergy Eye Verified 02/09/21 09:21 Anti-Inflamma Swelling Physical Exam Vitals: Vital Signs Temp Pulse Pulse Resp BP BP Pulse Ox 02/06/23 06:56 98.5 F 62 18 154/84 96 02/06/23 01:35 97.7 F 56 L 16 155/77 97 02/06/23 00:56 48 L 18 169/85 99 02/06/23 00:41 96.9 F L 53 L 18 176/106 100 02/05/23 21:51 98.0 F 88 22 176/94 97 Intake and Output 02/05/23 02/06/23 02/06/23 22:59 06:59 14:59 Output Total 600 Balance -600 Output: Urine 600 Other: # Voids 1 Weight 81.647 kg 81.647 kg GENERAL: The patient is alert and oriented x3, not in any acute distress. Well developed, well nourished. HEENT: Pupils are round and equally reacting to light. EOMI. No scleral icterus. No conjunctival pallor. Normocephalic, atraumatic. No pharyngeal erythema. No thyromegaly. CARDIOVASCULAR: S1 and S2 present. No murmurs, rubs, or gallops. PULMONARY: Chest is clear to auscultation, no wheezing , no crackles. ABDOMEN: Soft, nontender, nondistended, normoactive bowel sounds. No palpable organomegaly. MUSCULOSKELETAL: No joint swelling or deformity. EXTREMITIES: No cyanosis, clubbing, or pedal edema. NEUROLOGICAL: Gross neurological examination did not reveal any focal deficits. SKIN: No rashes. no petechiae. Results CBC & Chem 7: 02/05/23 22:29 02/06/23 06:45 Labs: Abnormal Lab Results - Last 24 Hours (Table) 02/05/23 02/05/23 02/06/23 Range/Units 22:29 22: 00:06 WBC 16.3 H (3.8-10.6) k/uL RBC 6.04 H (4.30-5.90) m/uL Hgb 18.1 H (13.0-17.5) gm/dL Neutrophils # 13.1 H (1.3-7.7) k/uL Sodium 136 L (137-145) mmol/L Chloride 93 L (98-107) mmol/L Carbon Dioxide 19 L 18 L (22-30) mmol/L BUN 26 H 26 H (9-20) mg/dL Creatinine 1.57 H 1.32 H (0.66-1.25) mg/dL Glucose 142 H 153 H (74-99) mg/dL Calcium 13.3 H* 11.7 H (8.4-10.2) mg/dL Total Bilirubin 1.4 H (0.2-1.3) mg/dL Total Protein 9.8 H (6.3-8.2) g/dL Albumin 5.9 H (3.5-5.0) g/dL Urine Protein (Negative) Urine Ketones (Negative) Hyaline Casts (0-2) /lpf Urine Mucus (None) /hpf 02/06/23 02/06/23 Range/Units 06:45 06:58 WBC (3.8-10.6) k/uL RBC (4.30-5.90) m/uL Hgb (13.0-17.5) gm/dL Neutrophils # (1.3-7.7) k/uL Sodium (137-145) mmol/L Chloride (98-107) mmol/L Carbon Dioxide (22-30) mmol/L BUN 26 H (9-20) mg/dL Creatinine (0.66-1.25) mg/dL Glucose 156 H (74-99) mg/dL Calcium (8.4-10.2) mg/dL Total Bilirubin (0.2-1.3) mg/dL Total Protein (6.3-8.2) g/dL Albumin (3.5-5.0) g/dL Urine Protein 1+ H (Negative) Urine Ketones 3+ H (Negative) Hyaline Casts 6 H (0-2) /lpf Urine Mucus Occasional H (None) /hpf Assessment and Plan Assessment: Recurrent nausea vomiting, most likely secondary to gastritis. Secondary to alcohol effect and binge drinking Dehydration secondary to above Acute kidney injury secondary to above Hypercalcemia Nicotine dependence he was consulted to quit Plan: Continue with bowel rest, place patient on clear liquid diet upon his request No abdominal pain and we'll keep monitoring IV fluids Continue with Reglan when necessary Abstinence from alcohol Monitor calcium Nephrology consult he chest x-ray and parathyroid hormone and TSH Labs and medication were reviewed.. Continue same treatment. Continue with symptomatic treatment. Resume home medication. Monitor labs and vitals. DVT and GI prophylaxis. Further recommendations as per clinical course of the patient DVT prophylaxis: Subcutaneous heparin GI Prophylaxis: Ppi
--- NOTE | 2023-02-06 11:23 | P.NPCON ---
History of Present Illness - Reason for Consult acute renal failure - History of Present Illness Reason for consultation: Acute kidney injury and hypercalcemia History of present illness: Patient is a 53-year-old male seen in renal consultation for acute kidney injury and hypercalcemia. Patient's creatinine on admission was 1.57 and is down to 1.05 today. Calcium was elevated at 13.3 and is down to 10.2 today. Patient received 2 L of normal saline and is currently maintained on normal saline at 1 30 mL an hour. Patient came to the hospital due to poor intake and vomiting which began yesterday morning. Patient states he vomited all day and was not able to keep anything down. He denies any diarrhea. Denies any difficulty with urination. No hematuria or dysuria. He denies use of nonsteroidals. He denies personal history of malignancy. Denies use of any diuretics. He does admit to taking Tums 4-6 tabs yesterday. Denies use of any other calcium supplements or vitamin D supplements. No chest pain or shortness of breath. No history of diabetes. No history of heart disease. No edema. No active complaints at this time except he still continues to have episodes of vomiting. Vital signs are stable. General: No acute distress. HEENT: Head exam is unremarkable. LUNGS: No audible rhonchi or wheezes. HEART: Rate and Rhythm are regular. ABDOMEN: Nontender. EXTREMITITES: No edema. Past Medical History Past Medical History: No Reported History Additional Past Medical History / Comment(s): diverticulitis, benign colon polyp History of Any Multi-Drug Resistant Organisms: None Reported Past Surgical History: Orthopedic Surgery, Tonsillectomy Additional Past Surgical History / Comment(s): Colonoscopy, anterior cervical fusion, ORIF R ankle, R hand tendon repair, colonoscopy Past Anesthesia/Blood Transfusion Reactions: No Reported Reaction Past Psychological History: No Psychological Hx Reported Additional Psychological History / Comment(s): Pt resides with his spouse and their 2 sons, one of which is an adult. Pt is independent. Smoking Status: Former smoker, Vaper Past Alcohol Use History: Rare Additional Past Alcohol Use History / Comment(s): Pt started smoking as a teen and quit in 2019. He then started vaping. Past Drug Use History: None Reported Additional Drug Use History / Comment(s): Occasional marijuana use. - Past Family History Father Family Medical History: No Reported History Additional Family Medical History / Comment(s): Father is healthy Mother Family Medical History: No Reported History Additional Family Medical History / Comment(s): Mother is healthy Medications and Allergies Home Medications Medication Instructions Recorded Confirmed Type No Known Home Medications 02/09/21 02/06/23 History Allergies Allergy/AdvReac Type Severity Reaction Status Date / Time ibuprofen [From Motrin] Allergy Eye Verified 02/06/23 10:39 Swelling NSAIDS (Non-Steroidal Allergy Eye Verified 02/06/23 10:39 Anti-Inflamma Swelling Physical Exam Vitals: Vital Signs Temp Pulse Pulse Resp BP BP Pulse Ox 02/06/23 06:56 98.5 F 62 18 154/84 96 02/06/23 01:35 97.7 F 56 L 16 155/77 97 02/06/23 00:56 48 L 18 169/85 99 02/06/23 00:41 96.9 F L 53 L 18 176/106 100 02/05/23 21:51 98.0 F 88 22 176/94 97 Intake and Output 02/05/23 02/06/23 02/06/23 22:59 06:59 14:59 Output Total 600 Balance -600 Output: Urine 600 Other: Voiding Method Toilet # Voids 1 Weight 81.647 kg 81.647 kg Results - Lab Results Most recent lab results Calcium 10.2 mg/dL (8.4-10.2) 02/06/23 06:45 Magnesium 1.8 mg/dL (1.6-2.3) 02/05/23 23:53 02/05/23 22:29 02/06/23 06:45 Assessment and Plan Plan: Assessment: 1. Acute kidney injury secondary to vasomotor nephropathy secondary to hypercalcemia and hypokalemia from vomiting. Creatinine 1.57 on admission and is 1.05 today. UA fairly benign. 2. Hypercalcemia secondary to volume contraction and Tums. Improving with IV hydration. 3. Metabolic acidosis secondary to acute kidney injury and IV fluids. Improved. 4. Intractable nausea and vomiting. Plan: Decreased rate of normal saline to 75 mL an hour. Avoid calcium/vitamin D supplements. Avoid nephrotoxins. Continue to monitor renal function and urine output. Follow-up PTH level. Thank you for the consultation. I will continue to follow the patient with you during his hospital stay.
[2023-02-06] MEDS: PANTOPRAZOLE 40 MG/10 ML VIAL IVP SCH ×2 (11:38→20:05)
--- NOTE | 2023-02-06 17:56 | XR ---
EXAMINATION TYPE: XR KUB portable DATE OF EXAM: 02/06/2023 5:26 PM CLINICAL INDICATION:Male, 53 years old with history of n/v; COMPARISON: None. TECHNIQUE: One radiographic view of the abdomen was obtained. FINDINGS: The bowel gas pattern is nonspecific without dilated loops of small or large bowel. There i s no evidence for organomegaly or pneumoperitoneum. The osseous structures are intact. No abnormal calcifications are present. Fecal material and gas are demonstrated throughout the colon and rectum. IMPRESSION: Nonspecific bowel gas pattern without radiographic evidence for acute process.
[2023-02-06] MEDS: HEPARIN SODIUM,PORCINE 5,000 UNIT/ML 1 ML VIAL SQ SCH (20:06)
[2023-02-07 07:48] VITALS: BP 104/69; PULSE 64; RESP 18; TEMP 98.9
[2023-02-07 09:01] LABS: Albumin 4.1 g/dL (3.8-4.9); Blood Urea Nitrogen 16.7 mg/dL (9.0-27.0); Calcium 9.3 mg/dL (8.7-10.3); Carbon Dioxide 23.3 mmol/L (21.6-31.8); Chloride 105 mmol/L (96-109); Glucose 103 mg/dL (70-110); Sodium 140 mmol/L (135-145)
[2023-02-07] MEDS: HEPARIN SODIUM,PORCINE 5,000 UNIT/ML 1 ML VIAL SQ SCH ×2 (09:06→09:08)
[2023-02-07] MEDS: PANTOPRAZOLE 40 MG/10 ML VIAL IVP SCH (09:06)
[2023-02-07] MEDS: SODIUM CHLORIDE 0.9% 1,000 ML IV SCH (09:06)
--- NOTE | 2023-02-07 11:07 | P.PN ---
Subjective Patient is seen in follow-up for acute kidney injury and hypercalcemia. Renal function back to baseline. Calcium level normal. No vomiting overnight. Still on clear liquid diet. Good urine output. Vital signs are stable. General: No acute distress. HEENT: Head exam is unremarkable. LUNGS: No audible rhonchi or wheezes. HEART: Rate and Rhythm are regular. ABDOMEN: Nontender. EXTREMITITES: No edema. Objective - Vital Signs Vital signs: Vital Signs Temp 98.9 F 02/07/23 07:31 Pulse 64 02/07/23 07:31 Resp 18 02/07/23 07:31 BP 104/69 02/07/23 07:31 Pulse Ox 97 02/07/23 07:31 FiO2 Intake & Output 02/06/23 02/07/23 02/07/23 18:59 06:59 18:59 Intake Total 590 Balance 590 Intake: Oral 590 Other: Voiding Method Toilet Toilet # Voids 3 2 - Labs CBC & Chem 7: 02/05/23 22:29 02/07/23 05:46 Labs: Abnormal Lab Results - Last 24 Hours (Table) 02/06/23 Range/Units 10:17 PTH Intact 11.5 L (14.0-72.0) pg/mL Assessment and Plan Plan: Assessment: 1. Acute kidney injury secondary to vasomotor nephropathy secondary to hypercalcemia and hypokalemia from vomiting. Creatinine 1.57 on admission and is 1.0 today. UA fairly benign. 2. Hypercalcemia secondary to volume contraction and Tums. Improved with IV hydration. PTH appropriately suppressed. 3. Metabolic acidosis secondary to acute kidney injury and IV fluids. Improved. 4. Intractable nausea and vomiting. Improved. Plan: Maintain IV fluids for another day. Avoid calcium/vitamin D supplements. Avoid nephrotoxins. Continue to monitor renal function and urine output.
[2023-02-07 11:15] LABS: HCT 41.4 % (39.0-53.0); MCH 30.1 pg (25.0-35.0); MCHC 32.8 g/dL (31.0-37.0); MCV 91.9 fL (80.0-100.0); Mean Platelet Volume 8.8; Platelet Count 257 k/uL (150-450); RBC 4.51 m/uL (4.30-5.90); RDW 12.6 % (11.5-15.5); WBC 9.5 k/uL (3.8-10.6)
[2023-02-07 12:30] LABS: HGB 13.6 gm/dL (13.0-17.5)
--- NOTE | 2023-02-15 16:14 | P.DS ---
Providers Date of admission: 02/06/23 00:09 Attending physician: Luisito Shah Consults: 02/06/23 00:07 Consult Physician Urgent Consulting Provider: Maikol Carlos Consult Reason/Comments: hypercalcemia, acute kidney injury Do you want consulting provider notified?: Yes, Notify in am Primary care physician: [facility] Course: Diagnoses: Recurrent nausea vomiting, most likely secondary to gastritis. Secondary to alcohol effect and binge drinking Dehydration secondary to above Acute kidney injury secondary to above, improved Hypercalcemia Nicotine dependence he was consulted to [facility] Hospital course: This is a pleasant 53 years old male with no significant past medical history Presents with reluctant nausea vomiting since yesterday morning that he could not keep anything down even when he tried to drink water. There is no blood area No abdominal pain, he feels chills and he feels called. He had bowel movement yesterday which was normal. Patient was treated with IV fluid normal saline and symptomatic treatment and his symptoms significantly improved back to normal. Nausea vomiting stopped and he tolerates diet well. WBC back to normal at 9.5 came of hemoglobin 13.6 with evidence of hemodilution. Creatinine back to normal 1.0 on calcium 9.3 which is normal as well Patient denies any other new symptoms and he wants to go home Patient was cleared for discharge by public message service supervisor. Problems and management plan were discussed with the patient and he verbalized understanding and acceptance Patient was found stable and can be discharged home in guarded prognosis however he needs follow-up as an outpatient. Patient was instructed to follow up with PCP Dr. Vivar and within one week and patient agrees Patient was instructed to follow up with public message service supervisor Dr. Aragon in 1-2 weeks and he agrees Physical exam Gen: patient is a AAOx3, no distress CVS: S1-S2, RRR, no murmur Lungs: B/L CTA, no wheezing Abdomen: soft, no distention, no tenderness, positive bowel sounds Extremity: no leg edema or induration Time spent more than 35 minutes Patient Condition at Discharge: Good Plan - Discharge Summary Discharge Rx Participant: No New Discharge Prescriptions: New Omeprazole [PriLOSEC] 20 mg PO AC-BRKFST 7 Days #7 cap Discharge Medication List Omeprazole [PriLOSEC] 20 mg PO AC-BRKFST 7 Days #7 cap 02/07/23 [Rx] Follow up Appointment(s)/Referral(s): Wilmer Vivar MD [Medical Doctor] - 1 Week Hernan Patel DO [Primary Care Provider] - 1-2 days Maikol Carlos DO [STAFF PHYSICIAN] - 1 Week Patient Instructions/Handouts: Dehydration (DC), Acute Kidney Injury (DC), Hypercalcemia (DC) Activity/Diet/Wound Care/Special Instructions: heart healthy diet activity is restricted till you see your doctor Discharge Disposition: HOME SELF-CARE
== END 2023-02-07 14:38 | disposition home or self-care (01) | DRG 683 ==
LOC: EC 21:50 → 5NMEDONC 02-06 00:09
PROVIDERS: ADMIT Hospitalist; ATTEND Hospitalist
DX: N17.0 Acute kidney failure with tubular necrosis (principal); E87.20 Acidosis, unspecified; E86.0 Dehydration; E83.52 Hypercalcemia; E87.6 Hypokalemia; T47.1X5A Adverse effect of other antacids and anti-gastric-secretion drugs, initial encounter; Z98.1 Arthrodesis status; Z86.010 Personal history of colon polyps; Z71.6 Tobacco abuse counseling; K29.20 Alcoholic gastritis without bleeding; F10.10 Alcohol abuse, uncomplicated; F17.290 Nicotine dependence, other tobacco product, uncomplicated
CPT/HCPCS: 36415; 71046; 74018; 80048; 80053; 81001; 82040; 82150; 83690; 83735; 83970; 84443; 85025; 85027; 87636; 93005; 96361; 96374; 96375; 99285

== ENCOUNTER → 2023-02-15 | Outpatient (CLI) | payer OTHER ==
--- NOTE | 2023-02-15 18:40 | US ---
EXAMINATION TYPE: US liver DATE OF EXAM: 02/15/2023 COMPARISON: CT 2021 CLINICAL INDICATION: Male, 53 years old with history of R94.5 ABN LIVER FUNCTION; TECHNIQUE: Multiple sonographic images of the right upper quadrant are obtained. FINDINGS: EXAM MEASUREMENTS: Liver Length: 17.1 cm Gallbladder Wall: 0.18 cm CBD: 0.38 cm Right Kidney: 10.8 x 4.6 x 5.1 cm SKEIN YARN DRIER NOTES: Pancreas: Limited visualization of tail Liver: Slight hepatomegaly Gallbladder: Some free-floating echoes noted within lumen Evidence for sonographic Castle's sign: No CBD: wnl Right Kidney: wnl IMPRESSION: 1. Mild hepatomegaly.
== END | disposition home or self-care (01) ==
LOC: RADUSWWP 09:22
PROVIDERS: ATTEND Family Medicine
DX: R16.0 Hepatomegaly, not elsewhere classified (principal); R94.5 Abnormal results of liver function studies
CPT/HCPCS: 76705